=== PATIENT | male | born 1990 | race American Indian/Alaskan Native ===

== ENCOUNTER 2018-02-18 12:38 | Emergency (ER) | payer SELFPAY ==
[2018-02-18 12:46] VITALS: BP 127/89
--- NOTE | 2018-02-18 16:11 | Emergency Department Report ---
- General Chief complaint: Skin/Abscess/Foreign Body Stated complaint: ABCESS/INNER THIGH Time Seen by Provider: 02/18/18 16:07 Source: patient Mode of arrival: Ambulatory Limitations: No Limitations - History of Present Illness Initial comments: 28-year-old male past medical history recurrent buttock abscesses presents with complaint of abscess to right inner thigh for 2-3 days. Denies fevers chills. No involvement of groin otherwise no involvement of testicles. No penile pain or penile discharge no dysuria. Patient is awake alert and oriented 3 ambulatory and nontoxic. MD complaint: abscess/boil Onset/Timin -: days(s) Severity: moderate Severity scale (0 -10): 5 Quality: aching Consistency: constant Improves with: none Worsens with: none - Related Data Previous Rx's Medication Instructions Recorded Last Taken Type Mupirocin [Bactroban 2% OINT] 1 applic TP TID #1 tube 12/01/15 Unknown Rx Acetaminophen/Codeine [Tylenol 1 tab PO Q6H PRN #4 tab 02/18/18 Unknown Rx /Codeine # 3 tab] Ibuprofen [Motrin] 800 mg PO Q8HR PRN #20 tablet 02/18/18 Unknown Rx Sulfamethoxazole/Trimethoprim 1 each PO BID #14 tablet 02/18/18 Unknown Rx [Bactrim DS TAB] Allergies Allergy/AdvReac Type Severity Reaction Status Date / Time No Known Allergies Allergy Unverified 12/01/15 05:38 Abscess Boil HPI - HPI Chief Complaint: Skin/Abscess/Foreign Body Stated Complaint: ABCESS/INNER THIGH Time Seen by Provider: 02/18/18 16:07 Home Medications: Previous Rx's Medication Instructions Recorded Last Taken Type Mupirocin [Bactroban 2% OINT] 1 applic TP TID #1 tube 12/01/15 Unknown Rx Acetaminophen/Codeine [Tylenol 1 tab PO Q6H PRN #4 tab 02/18/18 Unknown Rx /Codeine # 3 tab] Ibuprofen [Motrin] 800 mg PO Q8HR PRN #20 tablet 02/18/18 Unknown Rx Sulfamethoxazole/Trimethoprim 1 each PO BID #14 tablet 02/18/18 Unknown Rx [Bactrim DS TAB] Allergies/Adverse Reactions: Allergies Allergy/AdvReac Type Severity Reaction Status Date / Time No Known Allergies Allergy Unverified 12/01/15 05:38 ED Review of Systems ROS: Stated complaint: ABCESS/INNER THIGH Other details as noted in HPI Constitutional: denies: chills, fever Eyes: denies: eye pain, eye discharge, vision change ENT: denies: ear pain, throat pain Respiratory: denies: cough, shortness of breath, wheezing Cardiovascular: denies: chest pain, palpitations Endocrine: no symptoms reported Gastrointestinal: denies: abdominal pain, nausea, diarrhea Genitourinary: denies: urgency, dysuria Musculoskeletal: denies: back pain, joint swelling, arthralgia Skin: denies: rash, lesions Neurological: denies: headache, weakness, paresthesias Psychiatric: denies: anxiety, depression Hematological/Lymphatic: denies: easy bleeding, easy bruising ED Past Medical Hx - Past Medical History Previous Medical History?: No - Surgical History Past Surgical History?: No - Social History Smoking Status: Current Some Day Smoker Substance Use Type: None - Medications Home Medications: Home Medications Medication Instructions Recorded Confirmed Last Taken Type Mupirocin [Bactroban 2% OINT] 1 applic TP TID #1 tube 12/01/15 Unknown Rx Acetaminophen/Codeine [Tylenol 1 tab PO Q6H PRN #4 tab 02/18/18 Unknown Rx /Codeine # 3 tab] Ibuprofen [Motrin] 800 mg PO Q8HR PRN #20 tablet 02/18/18 Unknown Rx Sulfamethoxazole/Trimethoprim 1 each PO BID #14 tablet 02/18/18 Unknown Rx [Bactrim DS TAB] ED Physical Exam - General Limitations: No Limitations General appearance: alert, in no apparent distress - Head Head exam: Present: atraumatic, normocephalic - Eye Eye exam: Present: normal appearance - ENT ENT exam: Present: mucous membranes moist - Neck Neck exam: Present: normal inspection - Respiratory Respiratory exam: Present: normal lung sounds bilaterally. Absent: respiratory distress - Cardiovascular Cardiovascular Exam: Present: regular rate, normal rhythm. Absent: systolic murmur, diastolic murmur, rubs, gallop - GI/Abdominal GI/Abdominal exam: Present: soft, normal bowel sounds - Rectal Rectal exam: Present: deferred - Extremities Exam Extremities exam: Present: normal inspection - Back Exam Back exam: Present: normal inspection - Neurological Exam Neurological exam: Present: alert, oriented X3, CN II-XII intact, normal gait - Psychiatric Psychiatric exam: Present: normal affect, normal mood - Skin Skin exam: Present: warm, dry, intact, normal color. Absent: rash - Expanded Skin Exam Expanded Type of lesion: Present: abscess (abscess right inner thigh) Description of rash: Present: tenderness, erythematous, swelling (area of tenderness and erythema approximately 4-5 cm in diameter) 1 - Abscess here ED Course Vital Signs 02/18/18 12:44 Temperature 98.3 F Pulse Rate 68 Respiratory 18 Rate Blood Pressure 127/89 O2 Sat by Pulse 100 Oximetry - I & D Right Medial Thigh Type of Procedure: Simple Site: right inner thigh Blade Size: 11 I & D Procedure: betadine prep, gauze wick placed Progress: Lidocaine infiltrated into area did local anesthesia achieved. Single stab incision made. Tiny amount of purulent drainage. Approximately 2-3 inches of quarter-inch Xeroform gauze placed and wound. Covered It with gauze afterwards ED Medical Decision Making - Medical Decision Making A/P: Right inner thigh abscess 1-incised and drained 2-empiric course of Bactrim 3-Motrin when necessary 4- patient advised to return to the ED for any reaccumulation of abscess fevers or chills Critical care attestation.: If time is entered above; I have spent that time in minutes in the direct care of this critically ill patient, excluding procedure time. ED Disposition Clinical Impression: Abscess of right thigh Disposition: DC-01 TO HOME OR SELFCARE Is pt being admited?: No Does the pt Need Aspirin: No Condition: Stable Instructions: Abscess Incision and Drainage (ED), Abscess (ED) Additional Instructions: Return to the ED in 72 hours for packing removal or remove at home Prescriptions: Acetaminophen/Codeine [Tylenol /Codeine # 3 tab] 1 tab PO Q6H PRN #4 tab PRN Reason: Pain Ibuprofen [Motrin] 800 mg PO Q8HR PRN #20 tablet PRN Reason: Pain Sulfamethoxazole/Trimethoprim [Bactrim DS TAB] 1 each PO BID #14 tablet Referrals: [facility] [Provider Group] - 3-5 Days Forms: Work/School Release Form(ED) Time of Disposition: 16:11
[2018-02-18] MEDS ORDERED: XYLOCAINE 2% INFILTRATI ONE (16:14)
[2018-02-18] MEDS ORDERED: MOTRIN ONE (16:16)
== END 2018-02-18 17:22 | disposition home or self-care (01) ==
LOC: ED 12:38
DX: L02.415 Cutaneous abscess of right lower limb (principal); F17.200 Nicotine dependence, unspecified, uncomplicated
CPT/HCPCS: 99282